=== PATIENT | male | born 1995 | race Caucasian/White ===

== ENCOUNTER 2019-06-19 17:54 | Emergency (ER) | payer OTHER ==
[~2019-06-19] VITALS: Ht 160 cm; Wt 54.9 kg
[2019-06-19 18:05] VITALS: Ht 160 cm; Wt 54.9 kg
[2019-06-19 19:45] VITALS: BP 118/82
== END 2019-06-19 19:45 | disposition home or self-care (01) ==
LOC: ED 17:54
DX: S09.8XXA Other specified injuries of head, initial encounter (principal); Z88.0 Allergy status to penicillin; W22.8XXA Striking against or struck by other objects, initial encounter; Y93.89 Activity, other specified; Y92.89 Other specified places as the place of occurrence of the external cause; Y99.8 Other external cause status

== ENCOUNTER 2019-09-30 21:46 | Emergency (ER) | payer OTHER ==
[~2019-09-30] VITALS: Ht 162.6 cm; Wt 55.8 kg
[2019-09-30 22:20] VITALS: Ht 162.6 cm; Wt 55.8 kg
[2019-09-30 23:28] VITALS: BP 126/87
== END 2019-09-30 23:20 | disposition home or self-care (01) ==
LOC: ED 21:46
DX: S63.611A Unspecified sprain of left index finger, initial encounter (principal); Z88.0 Allergy status to penicillin; X58.XXXA Exposure to other specified factors, initial encounter; Y93.89 Activity, other specified; Y92.89 Other specified places as the place of occurrence of the external cause; Y99.8 Other external cause status
CPT/HCPCS: A4570

== ENCOUNTER 2020-04-01 00:05 | Emergency (ER) | payer SELFPAY ==
[~2020-04-01] VITALS: Ht 157.5 cm; Wt 54.4 kg
[2020-04-01 00:12] VITALS: Ht 157.5 cm; Wt 54.4 kg
[2020-04-01 01:04] LABS: BASOPHIL % 1.2 % (0-2); PLATELET COUNT 171 x10^3mcL (130-400); RED CELL DISTRIBUTION WIDTH 13.4 % (11.5-14.5)
[2020-04-01 01:27] LABS: ALBUMIN 4.6 g/dL (3.4-5.0); ALKALINE PHOSPHATASE 62 U/L (46-116); ALT/SGPT 20 U/L (16-63); AST/SGOT 18 U/L (15-37); BILIRUBIN TOTAL 0.3 mg/dL (0.20-1.00); CALCIUM 8.8 mg/dL (8.5-10.1); CARBON DIOXIDE 20.2 mmol/L (21-32); CHLORIDE SERUM 105 mmol/L (98-107); GFR1 > 60 mL/min; GLUCOSE SERUM 91 mg/dL (74-106); POTASSIUM SERUM 3.4 mmol/L (3.5-5.1); SODIUM SERUM 140 mmol/L (136-145); TOTAL PROTEIN, SERUM 7.2 g/dL (6.4-8.2)
[2020-04-01 03:49] LABS: BASOPHIL % 0.4 % (0-2); PLATELET COUNT 188 x10^3mcL (130-400); RED CELL DISTRIBUTION WIDTH 13.7 % (11.5-14.5)
[2020-04-01 04:29] VITALS: BP 118/69
== END 2020-04-01 04:29 | disposition home or self-care (01) ==
LOC: ED 00:05
PROVIDERS: Emergency Medicine
DX: K92.0 Hematemesis (principal); R10.13 Epigastric pain; Z88.0 Allergy status to penicillin
CPT/HCPCS: J2405; Q0092

== ENCOUNTER 2020-06-18 02:06 | Emergency (ER) | payer SELFPAY ==
[~2020-06-18] VITALS: Ht 162.6 cm; Wt 56.5 kg
[2020-06-18 02:15] VITALS: Ht 162.6 cm; Wt 56.5 kg
[2020-06-18 05:51] VITALS: BP 109/72
== END 2020-06-18 05:52 | disposition home or self-care (01) ==
LOC: ED 02:06
DX: S93.401A Sprain of unspecified ligament of right ankle, initial encounter (principal); S00.81XA Abrasion of other part of head, initial encounter; Z88.0 Allergy status to penicillin; V00.131A Fall from skateboard, initial encounter; Y93.51 Activity, roller skating (inline) and skateboarding; Y92.89 Other specified places as the place of occurrence of the external cause; Y99.8 Other external cause status
CPT/HCPCS: Q0092

== ENCOUNTER 2020-08-13 14:04 | Emergency (ER) | payer OTHER ==
[~2020-08-13] VITALS: Ht 162.6 cm; Wt 52.6 kg
[2020-08-13 14:15] VITALS: Ht 162.6 cm; Wt 52.6 kg
[2020-08-13 15:00] VITALS: BP 118/72
== END 2020-08-13 15:00 | disposition home or self-care (01) ==
LOC: ED 14:04
DX: L02.415 Cutaneous abscess of right lower limb (principal); Z88.0 Allergy status to penicillin

== ENCOUNTER 2020-11-15 18:26 | Emergency (ER) | payer OTHER ==
[~2020-11-15] VITALS: Ht 162.6 cm; Wt 55.9 kg
[2020-11-15 20:05] VITALS: Ht 162.6 cm; Wt 55.9 kg
[2020-11-15 21:05] VITALS: BP 111/74
== END 2020-11-15 21:05 | disposition home or self-care (01) ==
LOC: ED 18:26
DX: L03.114 Cellulitis of left upper limb (principal)

== ENCOUNTER 2020-12-27 22:53 | Emergency (ER) | payer OTHER ==
[~2020-12-27] VITALS: Ht 160 cm; Wt 55.3 kg
[2020-12-27 23:32] VITALS: BP 112/71; Ht 160 cm; Wt 55.3 kg
[2020-12-27] MEDS ORDERED: ULTRAM50 MG PO (23:40)
[2020-12-27] MEDS ORDERED: POLYMYXIN B/TRI10 ML OU (23:42)
[2020-12-27] MEDS ORDERED: BACTRIM DS1 TAB PO (23:42)
== END 2020-12-27 23:54 | disposition home or self-care (01) ==
LOC: ED 22:53
DX: H00.016 Hordeolum externum left eye, unspecified eyelid (principal); J34.0 Abscess, furuncle and carbuncle of nose; Z88.0 Allergy status to penicillin